=== PATIENT | female | born 1965 | race Hispanic/Latino ===

== ENCOUNTER 2018-11-22 10:06 | Emergency (ER) | payer OTHER ==
[2018-11-22 10:32] VITALS: BP 142/84; PULSE 88; RESP 18; TEMP 98.1; O2SAT 97
--- NOTE | 2018-11-22 11:19 | C.PDOC ---
History Of Present Illness 53 y/o female with history of HTN presents complaining of laceration to the left 4th digit s/p opening a box with a knife at work. She denies any recent tetanus and states that the knife was clean. She is a [employer] worker and was seen at the employee clinic and was advised to seek further evaluation in the ED. She denies any fever, chills, N/V, dizziness, and paresthesia. Time Seen by Provider: 11/22/18 11:05 Chief Complaint (Nursing): Abnormal Skin Integrity History Per: Patient History/Exam Limitations: no limitations Onset/Duration Of Symptoms: Sudden Onset Current Symptoms Are (Timing): Still Present Location Of Injury: Left: Hand (4th digit ) Quality Of Symptoms: Painful, Draining (blood) Severity: Mild Pain Scale Rating Of: 3 Past Medical History Reviewed: Historical Data, Nursing Documentation, Vital Signs Vital Signs: Last Vital Signs Temp 98.1 F 11/22/18 10:24 Pulse 88 11/22/18 10:24 Resp 18 11/22/18 10:24 BP 142/84 11/22/18 10:24 Pulse Ox 97 11/22/18 10:24 - Medical History PMH: HTN - [facility] Procedures RADICAL EXCIS SKIN LES (03/23/02) Family History: States: Diabetes, Hypertension - Social History Hx Tobacco Use: Yes (1/2-1 pack a day) Hx Alcohol Use: No Hx Substance Use: No - Immunization History Hx Tetanus Toxoid Vaccination: No Hx Influenza Vaccination: No Hx Pneumococcal Vaccination: No Review Of Systems Constitutional: Negative for: Fever, Chills Gastrointestinal: Negative for: Nausea, Vomiting Skin: Positive for: Other Neurological: Negative for: Weakness, Numbness Physical Exam - Physical Exam Appears: Well, Non-toxic, No Acute Distress Skin: Normal Color, Warm, Dry Head: Atraumatic, Normacephalic, No Tenderness Extremity: Normal ROM, Tenderness (left ring finger), Capillary Refill (less than 2 seconds) Neurological/Psych: Oriented x3, Normal Speech, Normal Cognition, Normal Sensation ED Course And Treatment O2 Sat by Pulse Oximetry: 97 Laceration - Laceration Repair left 4th digit Wound Length (In cm): 3cm Description Of Wound: Linear Wound Cleansed With: Betadine, Sterile Saline Anesthesia: Lidocaine 2% Wound Examination: Irrigated With Saline, No FB With Wound Exploration, No Tendon Injury With Wound Exploration Wound Closure: Suture (5-0 Ethilon used; 3 sutures) Suture Technique And Material Used: Interrupted Wound Complexity: Simple Medical Decision Making Medical Decision Making: A/P: Laceration to left ring finger (4th digit) - keep area clean and dry - bacitracin to area once a day and replaced dressing - follow up in 7-10 days for suture removal - advised to follow up if she develops fever, chills, active drainage, N/V - patient verbalized understanding Disposition Counseled Patient/Family Regarding: Diagnosis, Need For Followup, Smoking Cessation - Disposition Disposition: HOME/ ROUTINE Disposition Time: 11:47 Condition: GOOD Additional Instructions: SANDRA CALLAHAN, thank you for letting us take care of you today. Your provider was Eric Aguilera/ Yaneli HERNANDEZ and you were treated for LACERATION ON FINGER. The emergency medical care you received today was directed at your acute symptoms. You were advised to take Naprosyn 500mg three times a day as needed for pain. It may take several days for your symptoms to resolve. Return to the Emergency Department if your symptoms worsen, do not im prove, or if you have any other problems. Follow up in 7-10 days for suture removal. Please contact your doctor or call one of the physicians/clinics you have been referred to that are listed on the Patient Visit Information form that is included in your discharge packet. Bring any paperwork you were given at discharge with you along with any medications you are taking to your follow up visit. Our treatment cannot replace ongoing medical care by a primary care provider outside of the emergency department. Thank you for allowing the [facility] team to be part of your care today. Instructions: Laceration Repair With Stitches (DC) Forms: [employer] (Vietnamese), Work Excuse - Clinical Impression Clinical Impression: Laceration of finger - PA / EDGE BRUSHER / Resident Statement MD/DO has reviewed & agrees with the documentation as recorded.
[2018-11-22] MEDS ORDERED: Tdap Vaccine 0.5 ml Vial (10-64 yrs) IM ONE ×2 (11:21→11:57)
[2018-11-22] MEDS ORDERED: Bacitracin 500 Units/gm Oint Foilpak UD ONE (11:45)
== END 2018-11-22 12:48 | disposition home or self-care (01) ==
LOC: C.ER 10:06
DX: S61.215A Laceration without foreign body of left ring finger without damage to nail, initial encounter (principal); W26.0XXA Contact with knife, initial encounter; Y92.89 Other specified places as the place of occurrence of the external cause; Y99.0 Civilian activity done for income or pay

== ENCOUNTER 2018-12-08 13:56 | Emergency (ER) | payer OTHER ==
[2018-12-08 14:06] VITALS: BMI 41.1
[2018-12-08 14:12] VITALS: RESP 18; O2SAT 98
--- NOTE | 2018-12-08 14:36 | C.PDOC ---
History Of Present Illness 53 y/o F c PMHx HTN p/w lightheadedness today. Patient states she works at [employer] and an alarm went off that there was a chemical spill. She states the spill was on a different floor from her and was informed that it was contained. She states she did not see any chemical or gas. She notes that when she was evacuating the building, she "tasted" a chemical. She does note that she typically tastes things instead of smelling them. She states that while at her evacuation meeting point, she felt lightheaded, was given oxygen, at which point the taste resolved and she only tasted the oxygen. She continues to feel lightheaded now but improved from prior. EMT at scene obtained a normal sinus rhythm and normal vital signs but told her she should go to ED to be "checked out." She denies fever, chills, chest pain, dyspnea, vomiting, numbness, motor weakness, gait instability. Time Seen by Provider: 12/08/18 14:20 Chief Complaint (Nursing): Dizziness/Lightheaded Past Medical History Vital Signs: Last Vital Signs Temp 97.8 F 12/08/18 14:06 Pulse 88 12/08/18 14:06 Resp 18 12/08/18 14:06 BP 132/78 12/08/18 14:06 Pulse Ox 98 12/08/18 14:06 - Medical History PMH: HTN - [facility] Procedures RADICAL EXCIS SKIN LES (03/23/02) Family History: States: Diabetes, Hypertension - Social History Hx Tobacco Use: Yes (1/2-1 pack a day) Hx Alcohol Use: No Hx Substance Use: No - Immunization History Hx Tetanus Toxoid Vaccination: Yes Hx Influenza Vaccination: Yes Hx Pneumococcal Vaccination: No Review Of Systems Except As Marked, All Systems Reviewed And Found Negative. Constitutional: Negative for: Fever Cardiovascular: Negative for: Chest Pain Physical Exam - Physical Exam Appears: Non-toxic, No Acute Distress Skin: Normal Color, No Rash Head: Atraumatic, Normacephalic Eye(s): bilateral: PERRL, EOMI, Other (No nystagmus) Oral Mucosa: Moist Throat: No Erythema, No Exudate Neck: No Midline Cervical Tenderness, Supple Lymphatic: No Adenopathy Chest: No Tenderness Cardiovascular: Rhythm Regular Respiratory: Normal Breath Sounds, No Rales, No Rhonchi, No Stridor, No Wheezing Back: No CVA Tenderness, No Vertebral Tenderness Extremity: No Deformity Pulses: Left Radial: Normal, Right Radial: Normal Neurological/Psych: Normal Speech, Normal Cognition, Normal Motor, Normal Sensation, No Expressive Aphasia, No Dysarthria Gait: Steady Other Neurological Findings: No Facial Palsy ED Course And Treatment O2 Sat by Pulse Oximetry: 98 Medical Decision Making Medical Decision Making: Discharged home, instructed to return to ED for any worsening pain, dyspnea, lightheadedness, or any other problem. Disposition - Disposition Disposition: HOME/ ROUTINE Disposition Time: 14:38 Condition: STABLE Instructions: Chemical Exposure to the Skin (DC) - Clinical Impression Clinical Impression: Lightheaded
[2018-12-08 15:05] VITALS: BP 112/71; PULSE 90; TEMP 98.8
== END 2018-12-08 15:04 | disposition home or self-care (01) ==
LOC: C.ER 13:56
DX: R42 Dizziness and giddiness (principal)